=== PATIENT | male | born 1970 | race Caucasian/White ===

== ENCOUNTER 2020-10-15 00:33 | Emergency (ER) | payer SELFPAY ==
[2020-10-15] MEDS: EPINEPHrine 1 MG/10 ML SYR IVP ×4 (00:33→00:54)
--- NOTE | 2020-10-15 01:10 | ED.GENADUL_ITS ---
Discharge Plan Disposition Patient Disposition: Discharge Details Clinical Impression: Cardiac arrest, Pulmonary edema Primary Care Provider: Unknown,Unknown ED Provider: Triston Washington Medical Decision Making 50 yo male with unknown medical history presented to the ED complaining to access of shortness of breath. Nursing brought him back in a wheel chair and I met them in the room with the patient who was visibly short of breath and only able to speak in 1 word at a time. He could not answer review of systems questions and while he was being placed on our monitor, and before nursing could even start to obtain iv access or airway supplies he became unresponsive and was found to have no pulse. He did not have a pulse and when the monitor was applied it was showing PEA. He immediately had compressions and bag valve mask ventilations and was placed on defibrilator monitor showing pea initially so no amiodarone was given and there was no obvious st elevations on the monitor so lytics were not given. A total of 4mg of epi were given during the code and I was able to intubate him using a glidescope as well about 4-5 minutes into the code. On bedside ultrasound he had no cardiac activity during any pulse check and was noted to have diffuse b lines bilaterally and during intubation had pink frothy sputum coming from his airway. We did not have a person recording until more staff from upstairs arrived to start documenting and he had over 20 minutes of acls done and despite this remained in PEA with rates in the teens and his last end tidal reading was under 10. Given this and final bedside ultrasound showing no cardiac activity he was pronounced at 0104 secondary to likely hypoxia from pulmonary edema which could have been from an acute GA, PE, dysrhythmia, hypertensive emergency, inhalation injury or other cause that we unfortunately could not diagnose in the brief amount of time before he went into cardiac arres. ME contacted (Triston Hilton) and after review of the case did not feel it required to be medical coding technician case I did speak with the after we were unsuccessful in obtaining rosc and was advised patient suddenly started to complain of shortness of breath during intercourse and she drove him here for evaluation but prior to this was not complaining of anything Differential Diagnosis Differential Diagnosis: acs, pe, pulmonary edema, chf, copd HPI General Mode of arrival: wheelchair . Date/Time Provider Initiated Documentation: 10/15/20 00:33 . Limitations to Documentation: no limitations . Information obtained by: patient . History of Present Illness 50 year old M presents to the emergency department with the chief complaint of shortness of breath, described as moderate, Patient started experiencing this unknown and it has been constant. Related Data Allergies Allergy/AdvReac Type Severity Reaction Status Date / Time No Known Allergies Allergy Unverified 10/15/20 01:51 Review of Systems Unobtainable due to (significant shortness of breath, cardiac arrest) PFSH Social History Smoking/Tobacco Use Status: Unknown Smoking risk assessment performed?: Yes Substance use type: unknown Exam Const General: ill appearing Orientation: alert HENMT Head: normal to inspection Ears: external ears normal General nose exam: external nose normal Mouth: moist mucous membranes Eyes General: appearance normal, both eyes and all related structures Neck Neck: normal visual inspection Resp Effort & Inspection: labored, tachypneic and uses accessory muscles Cardio Rate: tachycardic Skin General skin exam: no rashes or lesions noted Neuro General: patient alert Extrem General: normal to inspection Procedures Intubation Time out performed: No (emergent) sedative: none Laryngoscope: fiberoptic video scope ET Tube Size: 7 ET Tube Uncuffed: Yes Tube Secured Depth (cm): 25 Tube Secured Location: teeth Tube Placement Confirmation: visualized tube passing through cords, equal breath sounds bilaterally, no breath sounds over epigastrum and confirmation by capnometry
[2020-10-15 02:09] LABS: COVID-19 PCR Negative (Negative)
--- NOTE | 2020-10-15 06:08 | NUR.NOTE ---
Nursing Note:Dr. Washington spoke to the It Systems Manager Triston Hilton, he declines the case.
--- NOTE | 2020-10-15 10:35 | RESPIRATORY ---
RT called to Emergency room 3 for code blue and upon arrival RT began to prepare equipment for intubation. Pt intubated by Physician with a 7.5 endotracheal tube at 26\teeth at approximately 00:45 via Glidescope. Tube was secured by an acharfast and patient was suctioned in-line and orally, RT noting pink frothy like secretions. Pt was ventilated at a rate of 1 breath every 6 seconds with 100% oxygen. In-Line end tidal was placed and an adequate wave form with a value of 30 was initially observed. Ventilation continued until 01:04 when Pt was pronounced .
== END 2020-10-15 02:30 | disposition expired ==
PROVIDERS: Emergency Provider Emergency Medicine
DX: I46.9 Cardiac arrest, cause unspecified (principal); J81.1 Chronic pulmonary edema
CPT/HCPCS: 31500; 87635; 96374; 99285